=== PATIENT | male | born 1985 | race African-American/Black ===

== ENCOUNTER 2020-12-21 08:17 | Emergency (ER) | payer MEDICAID, OTHER ==
[~2020-12-21] VITALS: Ht 167.6 cm; Wt 79.4 kg
[2020-12-21 12:20] VITALS: BP 147/82
== END 2020-12-21 12:28 | disposition home or self-care (01) ==
LOC: ER 08:17
DX: S00.03XA Contusion of scalp, initial encounter (principal); S30.810A Abrasion of lower back and pelvis, initial encounter; S40.211A Abrasion of right shoulder, initial encounter; F17.210 Nicotine dependence, cigarettes, uncomplicated; V19.9XXA Pedal cyclist (driver) (passenger) injured in unspecified traffic accident, initial encounter; Y93.89 Activity, other specified; Y92.89 Other specified places as the place of occurrence of the external cause; Y99.8 Other external cause status
CPT/HCPCS: 70450; 72125